=== PATIENT | male | born 1950 | race Caucasian/White ===

== ENCOUNTER → 2017-08-04 08:42 | Outpatient (POV) | payer MEDICARE, SELFPAY | PROVIDERS: PCP Family Medicine; Visit Provider Specialist | DX: R20.2 Paresthesia of skin (principal) | CPT/HCPCS: 95886; 95909 ==

== ENCOUNTER → 2017-08-28 09:12 | Outpatient (CLI) | payer MEDICARE, SELFPAY ==
--- NOTE | 2017-08-28 09:36 | XR_ITS ---
XR chest 2V HISTORY: Hypertension ITS.REASON: HTN, Preop testing ORDERING PHYSICIAN: Anuel Perez MD PATIENT AGE: 67 years COMPARISON: FINDINGS: The cardiomediastinal silhouette and pulmonary vascularity are within normal limits. The lungs are clear without infiltrates, suspicious nodules, or pleural effusions. No acute bony abnormalities. IMPRESSION: Negative chest, no acute finding
[2017-08-28 10:38] LABS: Basophils % 0.7 % (0.1-2.0); Eosinophils # 0.1 K/mm3 (0.0-0.4); Eosinophils % 1.9 % (0.1-12.0); Lymphocytes # 1.5 K/mm3 (0.7-4.5); Lymphocytes % 26.7 K/mm3 (10-50); Mean Corpuscular HGB Conc 34.8 g/dL (31.8-35.4); Mean Corpuscular Volume 94.7 fl (80-94); Mean Platelet Volume 7.5 fl (7.4-10.4); Monocytes # 0.6 K/mm3 (0.1-1.0); Monocytes % 10.1 % (1.7-9.3); Neutrophils # 3.5 K/mm3 (1.8-7.8); Neutrophils % 60.7 % (37.0-80.0); Platelet Count 264 K/mm3 (142-424); Red Blood Count 4.85 M/mm3 (4.60-6.20); Red Cell Distribution Width 12.2 % (11.5-17.5); White Blood Count 5.8 K/mm3 (4.8-10.8)
[2017-08-28 12:17] LABS: Anion Gap 12.9 mEq/L (5-15); Blood Urea Nitrogen 17 mg/dL (7-18); Carbon Dioxide 28 mmol/L (21.0-32.0); Chloride 104 mmol/L (98-107); Creatinine,Serum 1.14 mg/dL (0.70-1.30); Estimated Glomerular Filt Rate 64 ml/min (>60); GFR (African American) 78 ML/MIN (>60); Glucose 113 mg/dL (74-106); Potassium 3.9 mmoL/L (3.5-5.1); Sodium 141 mmol/L (136-145)
== END ==
PROVIDERS: Visit Provider Orthopaedic Surgery
DX: Z01.818 Encounter for other preprocedural examination (principal)
CPT/HCPCS: 36415; 71046; 80048; 85025; 93005

== ENCOUNTER → 2018-11-12 07:50 | Outpatient (CLI) | payer MEDICARE, SELFPAY | PROVIDERS: PCP Family Medicine; Visit Provider Family Medicine | DX: G47.33 Obstructive sleep apnea (adult) (pediatric) (principal); R06.83 Snoring; G47.00 Insomnia, unspecified; I10 Essential (primary) hypertension | CPT/HCPCS: G0399 ==

== ENCOUNTER → 2020-11-16 09:04 | Outpatient (POV) | payer MEDICARE, SELFPAY | PROVIDERS: Visit Provider Audiologist | DX: Z00.00 Encounter for general adult medical examination without abnormal findings (principal) ==

== ENCOUNTER 2021-01-30 09:00 | Outpatient (RCR) | payer MEDICARE, SELFPAY ==
--- NOTE | 2021-01-15 09:59 | HMH.PTOPEV ---
PT Outpatient Evaluation Rehab PT Outpatient Evaluation Start: 01/15/21 09:05 Freq: Status: Active Protocol: Document 01/15/21 09:05 MIKAILA (Rec: 01/15/21 09:59 DOMINIK [id number]) Electronically Signed By Alonzo Ramesh PT 01/15/21 09:05 Outpatient Therapy Subjective History Subjective History This is the initial Physical Therapy evaluation for Alonzo León. Pt is a 70 y/o male referred to PT for c/o R foot and calf paresthesia. Pt reports ~ 3-4 weeks ago he woke up and had pain in his R hip. Pt reports several weeks of care clinician caused pain to move into calf w/ paresthesia. Pt now reports to PT for c/o paresthesia and antalgic gait Chief Complaint Paresthesia Symptom Type Ache Symptoms Relieved By Rest/Positioning Symptoms Aggravated By Physical Activity,Lifting Prior Functional Limitations None Current Functional Limitations Lifting,Recreation Activity, Walking,Bending/Stooping Symptom Description Constant but Variable Level of pain today (0-10) 0 Pain scale - at its best (0-10) 0 Pain scale - at its worst (0-10) 6 Lumbopelvic Eval Posture Lumbar Spine Posture Standing Position Flattened Assistive device Assistive Devices None / NA Palapation tenderness right lumbar spinal tenderness Yes paraspinal tenderness Yes Lumbar/Sacral Palpation Findings Tenderness Accessory Movement L5 right S1 right Range of Motion Lumbar Spine ROM Reason Not Measured Within Functional Limits Special Tests Lumbar Spine Screen Positive Forward Bending Test- Sitting Positive Right Sciatic Nerve Tension Test Positive Right Unilateral Straight Leg Raise (Lasegue) Positive Right Test Outpatient Therapy Assessment Impairments Problems/Impairmments Impaired Gait Pattern,Impaired Walking,Impaired Sitting, Impaired Lifting,Impaired Bending,Impaired Recreational Activities,Subjective C/O Pain ,Impaired Self Care/Self Management Prognosis Rehab Potential Fair Clinical Impression Consistent with Diagnosis Yes Consistent with lumbar radiculopathy Short Term Goals Number of Weeks
== END 2021-01-30 09:05 | disposition home or self-care (01) ==
LOC: PT 09:00
PROVIDERS: PCP Family Medicine; Visit Provider Family Medicine
DX: R20.0 Anesthesia of skin (principal)
CPT/HCPCS: 97110; 97163

== ENCOUNTER → 2021-07-23 10:36 | Outpatient (CLI) | payer MEDICARE, SELFPAY | PROVIDERS: Visit Provider Internal Medicine | DX: Z01.812 Encounter for preprocedural laboratory examination (principal); Z11.52 Encounter for screening for COVID-19; Z12.11 Encounter for screening for malignant neoplasm of colon | CPT/HCPCS: C9803; U0003; U0005 ==

== ENCOUNTER 2021-07-25 08:54 | Day surgery (SDC) | payer MEDICARE, SELFPAY ==
[2021-07-20 13:32] VITALS: BMI 31.1
[2021-07-25] VITALS (7 sets, daily range): BP systolic 119–147; BP diastolic 70–81; PULSE 61–83; RESP 16–18; TEMP 36.1–36.5; O2SAT 93–99
--- NOTE | 2021-07-25 09:29 | HMH.ANESCL ---
[facility] Anesthesia Checklist - Patient Identification Patient Identification: Arm Band, Verbal (Name & ) - Structural Data Admitted From: Home Planned Operative Procedure/s: Colonoscopy Consent for Planned Operative Procedure(s) Verified: Yes Verified Documents: Surgical Consent - Additional verifications Anesthesia Reactions: No Hx Blood Transfusions: No Blood Transfusion Reaction: No - Airway Assessment C-Spine Mobility Assessed: Yes TMJ Mobility Assessed: Yes Dentition: Good Dentition - Anesthesia Plan Anesthesia Risk discussed: Yes ASA Class: II Anesthesia Type: MAC [facility] History I have reviewed the patient's past medical history: Yes Medical History: Reports:: Hyperlipidemia, Hypertension Denies:: Cancer, Diabetes Mellitus Type 1, Diabetes Mellitus Type 2, Internal Pacemaker, MRSA, Seizures *Have you ever received a pneumonia vaccine?: Yes *Have you received a flu vaccine this season?: Yes Other Medical History: Reports: Other. Denies: Blood Transfusion Reaction Anesthesia experience/problems:: no issues Other Surgeries: Yes: Cardiac Catheterization, Colonoscopy, Hernia Repair. No: Pacemaker Amputation: No Fractures: No - *Social History Last grade of school completed: High school graduate Smoking Status: Light tobacco smoker Tobacco Type: cigars Alcohol Intake: never Substance Use Type: denies use *Occupational Status:: employed Housing: house Household Members: spouse *Travel in the last 8 weeks: None Family Hx:: Stroke
--- NOTE | 2021-07-25 10:32 | HMH.SCOPE ---
- Procedure: Date: 07/25/21 Patient Date of :: 1950 Procedure Performed:: Colonoscopy Indications:: The patient is a 71 year old who presents for colonoscopy for a positive cologuard test Performing Provider:: Que Snider MD Referring Provider:: Roni Redd MD Sedation:: See RN notes Procedure:: After placing the patient in the left lateral decubitus position, the colonoscopy was gently inserted into the rectum and under direct visualization advanced to the cecum which was identified by transillumination in the right lower quadrant, identification of the ileocecal valve, appendiceal orifice, and cecal strap. Color, texture, mucosa, and anatomy of the colon were carefully examined with the scope. Findings:: Anal canal: normal Rectum: Sessile polyp less than 5 mm in size. Removed with cold snare polypectomy. Pedunculated polyp 11-12 mm in size at rectosigmoid colon. Removed with snare cautery polypectomy. Sigmoid colon: normal without polyps or inflammatory changes Descending colon: normal without polyps or inflammatory changes Splenic flexure: normal Transverse colon: normal without polyps or inflammatory changes Hepatic flexure: normal Ascending colon: normal without polyps or inflammatory changes Cecum: normal Terminal ileum: not visualized Recommendations:: Await pathology results Complications:: none Estimated blood obtained (mL): 0
== END 2021-07-25 11:25 | disposition home or self-care (01) ==
LOC: OUTP 08:55
PROVIDERS: PCP Family Medicine; Visit Provider Internal Medicine
PROC: 0DJD8ZZ Inspection of Lower Intestinal Tract, Via Natural or Artificial Opening Endoscopic (ICD-10-PCS; CPT 45378; principal; 2021-07-25 10:00)
DX: R19.5 Other fecal abnormalities (principal); D12.7 Benign neoplasm of rectosigmoid junction; D12.8 Benign neoplasm of rectum
CPT/HCPCS: 45385; 88305

== ENCOUNTER 2021-10-05 00:36 | Emergency (ER) | payer MEDICARE, SELFPAY ==
[2021-10-05] VITALS (9 sets, daily range): BP systolic 130–168; BP diastolic 85–96; PULSE 65–84; RESP 17; TEMP 36.7–36.8; O2SAT 96–99; BMI 31.1
[2021-10-05 00:51] LABS: Microscopic, Urine URINE MICROSCOPIC (MICROSCOPIC)
[2021-10-05 00:53] LABS: Appearance,Urine CLOUDY (Clear); Blood, Urine 3+ (Negative); Color,Urine DK YELLOW (Yellow); Glucose,Urine (UA) Negative (Negative); Ketones,Urine Negative (Negative); Leukocyte Esterase,Urine Negative (Negative); Nitrate,Urine Negative (Negative); Protein,Urine 1+ (Negative); Specific Gravity, Urine >= 1.030 (1.005-1.030); Urobilinogen,Urine 0.2 EU/dl (0.2)
[2021-10-05 00:59] LABS: Bilirubin,Urine Negative (Negative)
[2021-10-05 01:05] LABS: WBC,Urine Occasional #/hpf (0-3)
[2021-10-05 01:06] LABS: Bacteria,Urine 1+ /lpf
--- NOTE | 2021-10-05 01:09 | CT_ITS ---
PROCEDURE INFORMATION: Exam: CT Abdomen And Pelvis Without Contrast Exam date and time: 10/05/2021 1:19 AM Age: 71 years old Clinical indication: Abdominal pain; Flank; Right lower quadrant (rlq); Additional info: R flank pain radiates to R testicle TECHNIQUE: Imaging protocol: Computed tomography of the abdomen and pelvis without contrast. Radiation optimization: All CT scans at this facility use at least one of these dose optimization techniques: automated exposure control; mA and/or kV adjustment per patient size (includes targeted exams where dose is matched to clinical indication); or iterative reconstruction. COMPARISON: No relevant prior studies available. FINDINGS: Heart: Coronary atherosclerosis is present. Liver: Normal. No mass. Gallbladder and bile ducts: The patient is status post cholecystectomy. Pancreas: Normal. No ductal dilation. Spleen: Normal. No splenomegaly. Adrenal glands: Normal. No mass. Kidneys and ureters: There is a 9 mm stone at the right UPJ with moderate right-sided hydronephrosis and perinephric edema. No evidence of urolithiasis is noted. No left-sided stones are present. Stomach and bowel: Unremarkable. No obstruction. No mucosal thickening. Appendix: No evidence of appendicitis. Intraperitoneal space: Unremarkable. No free air. No significant fluid collection. Vasculature: Unremarkable. No abdominal aortic aneurysm. Lymph nodes: Unremarkable. No enlarged lymph nodes. Urinary bladder: Unremarkable as visualized. Reproductive: The prostate is diffusely enlarged. Bones/joints: Unremarkable. No acute fracture. Soft tissues: Unremarkable. IMPRESSION: 1. 9 mm right UPJ stone with moderate right-sided hydronephrosis. 2. Status post cholecystectomy. 3. Coronary atherosclerosis. 4. Prostatomegaly
--- NOTE | 2021-10-05 01:24 | PC.NURSE ---
Pt gone to RAD
--- NOTE | 2021-10-05 01:27 | PC.NURSE ---
Pt back from RAD and given warm blanket
[2021-10-05 01:28] LABS: Basophils # 0.2 K/mm3 (0-0.2); Basophils % 1.4 % (0.1-2.0); Eosinophils # 0.2 K/mm3 (0.0-0.4); Eosinophils % 1.4 % (0.1-12.0); Hematocrit 48.2 % (42.0-52.0); Hemoglobin 16.5 g/dL (14.1-18.0); Lymphocytes # 1.2 K/mm3 (0.7-4.5); Lymphocytes % 9.8 % (10-50); Mean Corpuscular HGB Conc 34.3 g/dL (31.8-35.4); Mean Corpuscular Hemoglobin 33.4 pg (27.0-31.2); Mean Corpuscular Volume 97.4 fl (80-94); Monocytes # 0.7 K/mm3 (0.1-1.0); Monocytes % 5.7 % (1.7-9.3); Neutrophils # 10.2 K/mm3 (1.8-7.8); Neutrophils % 81.6 % (37.0-80.0); Platelet Count 288 K/mm3 (142-424); Red Blood Count 4.95 M/mm3 (4.60-6.20); Red Cell Distribution Width 13.1 % (11.5-17.5); White Blood Count 12.5 K/mm3 (4.8-10.8)
[2021-10-05 01:33] LABS: Amylase 104 U/L (30-110)
[2021-10-05 01:35] LABS: Alanine Aminotransferase 34 U/L (12-78); Albumin Level 4.4 g/dl (3.5-5.0); Albumin/Globulin Ratio 1.4 (1.1-1.8); Alkaline Phosphatase 60 U/L (38-126); Anion Gap 13.7 mEq/L (5-15); Aspartate Amino Transferase 29 U/L (17-59); Bilirubin,Total 0.3 mg/dl (0.2-1.3); Blood Urea Nitrogen 24 mg/dl (9-20); Calcium 9.5 mg/dl (8.4-10.2); Carbon Dioxide 31 mmol/L (22.0-30.0); Chloride 98 mmol/L (98-107); Creatinine Clearance Estimated 73 mL/min (50-200); Estimated Glomerular Filt Rate 50 ml/min (>60); GFR (African American) 61 ML/MIN (>60); Globulin 3.1 g/dL (1.3-3.2); Glucose 160 mg/dl (74-100); Lipase 103 U/L (23-300); Potassium 3.7 mmoL/L (3.5-5.1); Sodium 139 mmol/L (136-145); Total Protein,Serum 7.5 g/dl (6.3-8.2)
[2021-10-05 01:39] LABS: C-Reactive Protein 0.8 mg/L (0-4)
--- NOTE | 2021-10-05 01:39 | HMH.EDUROGM ---
ED Disposition Clinical Impression: Renal colic on right side Disposition: Home, Self-Care Condition on Discharge: Good Instructions: DI for Kidney Stones Additional Instructions: use meds and see pcp for follow up Prescriptions: Tamsulosin HCl [Flomax 0.4mg capsule] 0.4 mg PO HS 14 Days #30 cap Transmission Status: Pending to [facility] Referrals: Monica Salinas MD [Primary Care Provider] - Asher Miguel MD [Staff Physician] - - Critical Care Critical Care Time: No Attestation: On 10/05/21, the high probability of a clinically significant, sudden or life threatening deterioration of the following system(s) required my full and direct attention, intervention and personal management. The time I documented below is in addition to time spent performing reported procedures but includes the following listed in this critical care notation. Medical Decision Making - Medical Records Medical records reviewed: Yes: I reviewed the patient's medical records. - Omari Inquiry Pt receiving controlled substance: No Vital Signs: 10/05/21 00:38 10/05/21 00:56 10/05/21 01:16 Temperature 98.1 F Temperature Source Oral Pulse Rate 65 72 Pulse Rate [Right] 68 Respiratory Rate 17 Blood Pressure 161/94 H 151/92 H Blood Pressure [Right Arm] 161/94 H Blood Pressure Mean Blood Pressure Mean [Right Arm] 116 Blood Pressure Source [Right Arm] Automatic Cuff 02 Sat by Pulse Oximetry 98 98 99 Oxygen Delivery Method Room Air Room Air Room Air 10/05/21 01:36 10/05/21 01:57 10/05/21 02:36 Temperature Temperature Source Pulse Rate 73 84 Pulse Rate [Right] Respiratory Rate Blood Pressure 130/85 156/90 H 168/92 H Blood Pressure [Right Arm] Blood Pressure Mean 102 102 107 Blood Pressure Mean [Right Arm] Blood Pressure Source [Right Arm] 02 Sat by Pulse Oximetry 97 96 Oxygen Delivery Method Room Air Room Air 10/05/21 02:56 10/05/21 03:35 Temperature Temperature Source Pulse Rate 74 Pulse Rate [Right] Respiratory Rate Blood Pressure 159/93 H 166/91 H Blood Pressure [Right Arm] Blood Pressure Mean 105 103 Blood Pressure Mean [Right Arm] Blood Pressure Source [Right Arm] 02 Sat by Pulse Oximetry 97 97 Oxygen Delivery Method Room Air Room Air - Lab Data Lab results reviewed: Yes: I reviewed the patient's lab results. Lab Results 10/05/21 00:46: Urine Color Dk yellow, Urine Appearance Cloudy, Urine pH 6.0, Ur Specific [place] >= 1.030, Urine Protein 1+, Urine Glucose (UA) Negative, Urine Ketones Negative, Urine Blood 3+, Urine Nitrate Negative, Urine Bilirubin Negative, Urine Urobilinogen 0.2, Ur Leukocyte Esterase Negative, Urine RBC 10-20, Urine WBC Occasional, Urine Bacteria 1+ 10/05/21 01:18: ESR 15 10/05/21 01:18: C-Reactive Protein 0.8, Amylase 104, Procalcitonin 0.061 10/05/21 01:18: WBC 12.5 H, RBC 4.95, Hgb 16.5, Hct 48.2, MCV 97.4 H, MCH 33.4 H, MCHC 34.3, RDW 13.1, Plt Count 288, MPV 8.0, Neut % (Auto) 81.6 H, Lymph % (Auto) 9.8 L, Branch % (Auto) 5.7, Eos % (Auto) 1.4, Baso % (Auto) 1.4, Neut # (Auto) 10.2 H, Lymph # (Auto) 1.2, Branch # (Auto) 0.7, Eos # (Auto) 0.2, Baso # (Auto) 0.2 10/05/21 01:18: Sodium 139, Potassium 3.7, Chloride 98, Carbon Dioxide 31 H, Anion Gap 13.7, BUN 24 H, Creatinine 1.40 H, Estimated Creat Clear 73, Estimated GFR 50 L, Est GFR ( Amer) 61, Glucose 160 H, Calcium 9.5, Total Bilirubin 0.3, AST 29, ALT 34, Alkaline Phosphatase 60, Total Protein 7.5, Albumin 4.4, Globulin 3.1, Albumin/Globulin Ratio 1.4, Lipase 103 Result diagrams: 10/05/21 01:18 10/05/21 01:18 Orders (Tests/Meds): ED MEDICATIONS Generic Name Dose Route Start Last Admin Trade Name Freq PRN Reason Stop Dose Admin Sodium Chloride 1,000 mls @ 999 mls/hr 10/05/21 01:15 10/05/21 01:40 Sod Chlor 0.9% 1000ml Bag IV 10/05/21 02:15 999 mls/hr .[id number] MANOJ Administration Sodium Chloride 1,000 mls @ 999 mls/hr 10/05/21 04:00 0
[2021-10-05 01:53] LABS: Procalcitonin 0.061 ng/mL (0.0-2.0)
[2021-10-05 01:55] LABS: Erythrocyte Sedimentation Rate 15 mm/hr (0-20)
--- NOTE | 2021-10-05 02:54 | PC.NURSE ---
Spoke with Trinity from Radiology, she advised that she had spoke to [facility] and they had not yet begun to read scans because they were trying to streamline more critical cases.
--- NOTE | 2021-10-05 03:00 | PC.NURSE ---
Spoke with pt about expected wait times. Pt was very agreeable. No new needs at this time.
--- NOTE | 2021-10-05 03:07 | PC.NURSE ---
Pt & her spouse updated on expected wait time for ct scan, results. States their understanding. Given warm blankets. Fluids infusing, and pain medication.
--- NOTE | 2021-10-05 03:46 | PC.NURSE ---
Called Radiology to check status of [facility], still only assigned . She is chatting [facility] again.
== END 2021-10-05 05:09 | disposition home or self-care (01) ==
PROVIDERS: Emergency Provider Emergency Medicine; PCP Family Medicine
DX: N20.0 Calculus of kidney (principal); N50.811 Right testicular pain; M54.9 Dorsalgia, unspecified; I10 Essential (primary) hypertension; E78.5 Hyperlipidemia, unspecified; F17.290 Nicotine dependence, other tobacco product, uncomplicated; Z79.82 Long term (current) use of aspirin
CPT/HCPCS: 74176; 80053; 81001; 82150; 83690; 84145; 85025; 85651; 86140; 96361; 96374; 96375; 99285; J2405

== ENCOUNTER → 2021-10-11 10:11 | Outpatient (CLI) | payer MEDICARE, SELFPAY ==
--- NOTE | 2021-10-11 10:26 | XR_ITS ---
FINAL REPORT CLINICAL HISTORY: kidney stone COMPARISON: CT dated October 05, 2021 FINDINGS: SINGLE VIEW ABDOMEN A single view of the abdomen was obtained. There is a nonobstructive bowel gas pattern. There are no abnormally dilated loops of small bowel. There is a moderate to large amount of retained stool. There is a calcification of the medial right abdomen measuring 6 mm consistent with proximal right ureteral stone as seen on the prior CT. There are postoperative changes of the right abdomen. IMPRESSION: Nonobstructive bowel gas pattern. Right ureteral stone. Moderate to large amount of retained stool. Reviewed, Interpreted and Dictated by Jermaine Muhammad III, MD Transcribed by Sarai Sweet Authenticated and [facility]
== END ==
PROVIDERS: PCP Family Medicine; Visit Provider Urology
DX: N20.0 Calculus of kidney (principal)
CPT/HCPCS: 74018

== ENCOUNTER → 2021-10-24 08:52 | Outpatient (CLI) | payer MEDICARE, SELFPAY | PROVIDERS: PCP Family Medicine; Visit Provider Urology | DX: N20.1 Calculus of ureter (principal); Z01.812 Encounter for preprocedural laboratory examination; Z20.822 Contact with and (suspected) exposure to COVID-19 | CPT/HCPCS: C9803; U0003; U0005 ==

== ENCOUNTER 2021-10-26 08:08 | Day surgery (SDC) | payer MEDICARE, SELFPAY ==
[2021-10-24 10:39] VITALS: BMI 31.1
[2021-10-26] VITALS (9 sets, daily range): BP systolic 123–147; BP diastolic 81–100; PULSE 70–79; RESP 15–19; TEMP 36.2–36.5; O2SAT 91–97
--- NOTE | 2021-10-26 08:14 | XR_ITS ---
FINAL REPORT CLINICAL HISTORY: URETERAL STONE COMPARISON: 10/11/2021 FINDINGS: ABDOMEN SINGLE VIEW There is a nonspecific, nonobstructive bowel gas pattern. No bowel dilation is identified. There is a 6 mm calcification in the medial right abdomen adjacent to the right L3 transverse process consistent with a proximal ureteral stone. There has been no significant change since previous. There is postoperative change in the right upper quadrant. Pelvic calcifications are seen, may represent prostate calcifications. IMPRESSION: Proximal ureteral stone, not significantly changed. Reviewed, Interpreted and Dictated by Jermaine Muhammad III, MD Transcribed by Amanda Stroud Authenticated and [facility] [place] [place]
--- NOTE | 2021-10-26 09:20 | P.PN_ITS ---
[facility] Anesthesia Checklist - Patient Identification Patient Identification: Arm Band - Structural Data Admitted From: Home Planned Operative Procedure/s: ESWL Consent for Planned Operative Procedure(s) Verified: Yes - NPO Status Verified Time NPO: 00:00 - Additional verifications Anesthesia Reactions: No Hx Blood Transfusions: No Blood Transfusion Reaction: No - Airway Assessment C-Spine Mobility Assessed: Yes TMJ Mobility Assessed: Yes Dentition: Poor Dentition - Neurological Assessment Level of Consciousness: Awake Hx Seizures: No Numbness or tingling in extremities: No - Anesthesia Plan Anesthesia Risk discussed: Yes Anesthesia Plan: Verified ASA Class: III Anesthesia Type: General [facility] History I have reviewed the patient's past medical history: Yes Medical History: Reports:: Hyperlipidemia, Hypertension, Kidney Stones Denies:: Cancer, Diabetes Mellitus Type 1, Diabetes Mellitus Type 2, Internal Pacemaker, MRSA, Seizures *Have you ever received a pneumonia vaccine?: Yes *Have you received a flu vaccine this season?: Yes Other Medical History: Reports: Other. Denies: Blood Transfusion Reaction Anesthesia experience/problems:: None Other Surgeries: Yes: No Previous Surgery, Cardiac Catheterization, Colonoscopy, Hernia Repair. No: Pacemaker Amputation: No Fractures: No - *Social History Smoking Status: Former smoker Tobacco Type: cigars Alcohol Intake: current Alcohol Intake Frequency:: a few times a month Substance Use Type: denies use *Occupational Status:: employed Housing: house Household Members: spouse *Travel in the last 8 weeks: None Family Hx:: Stroke
--- NOTE | 2021-10-26 11:41 | P.PN_ITS ---
[facility] Anesthesia Record Part I Intake, IV Amount: 700 Estimated blood loss (mL): 0 Urine output (mL): 0 Blood Pressure: 147/87 SaO2: 94 Pulse Rate: 75 Respiratory Rate: 15 Temperature: 97.2 F Patient is:: Drowsy, Oral/Nasal airway Stable to PACU at:: 11:39
--- NOTE | 2021-10-26 14:01 | HMH.OPNOTE ---
Date of procedure: 10/26/21 Pre-op Diagnosis:: 7 mm right proximal ureteral stone Post-op Diagnosis:: Same Procedure performed:: Cystoscopy with stone manipulation and right ESWL Surgeon:: Asher Miguel MD [employer] INSTALLER:: Wesley Munoz Anesthesia: LMA Estimated blood loss (mL): 0 Clinical Note:: 71-year-old white male with history of nephrolithiasis now with a 7 mm right proximal ureteral stone. He continues to have some Intermittent right flank pain and presents for urologic management. Operative findings:: Preoperative KUB revealed a 7 mm stone still in the proximal right ureter. Stone was manipulated easily back into the kidney and ESWL was performed with good fragmentation. Operative note:: Patient taken to the operating room after informed consent was obtained. He was placed on the operating table in the supine position and general anesthesia administered. Preoperative antibiotics and sequential compression devices placed. He was then placed into the dorsal lithotomy position and prepped draped in the standard surgical fashion. 22 Federico passed into the urethra and into the bladder without difficulty. The bladder was examined in a systematic fashion and a small calcification was noted in the bladder. No mucosal abnormalities or diverticula were noted. A 5 [place] ureteral catheter passed into the right ureteral orifice and under fluoroscopy passed up to the proximal right ureteral stone. The stone was easily manipulated back into the right kidney and ureteral catheter left indwelling for the ESWL portion of the procedure. The bladder drained and the cystoscope removed. Patient then placed into the supine position and positioned so that the stone was at the F2 of the lithotripter. 1000 shockwaves delivered to the stone and the stone had fragmented very nicely. There is still residual stone fragments remaining and another 2000 shockwaves delivered to the stone with very good fragmentation. Patient tolerated procedure well. The ureteral catheter was removed at the end of the case. Transferred to the recovery in stable condition. Condition: stable Disposition: PACU Specimens:: None Complications:: None
[2021-10-29 07:12] VITALS: BP 128/84; PULSE 70; TEMP 36.4
--- NOTE | 2021-10-29 07:12 | P.PN_ITS ---
[facility] Anesthesia Record Part II Discharge Time: 12:09 Destination: Surgical Day Care (OP Surgery) PACU nurse assessment reviewed?: Yes Patient Condition:: Good Anesthesia Complications:: None Swallowing reflex intact?: Yes Cyanosis?: No Blood Pressure: 128/84 Pulse Rate: 70 Temperature: 97.5 F Mental Status: Alert & Oriented Pain level:: 0 Nausea and/or vomitting:: None Intake, IV Amount: 0
== END 2021-10-26 12:40 | disposition home or self-care (01) ==
LOC: OR 08:09
PROVIDERS: PCP Family Medicine; Visit Provider Urology
DX: N20.2 Calculus of kidney with calculus of ureter (principal); N23 Unspecified renal colic; I10 Essential (primary) hypertension; E78.5 Hyperlipidemia, unspecified
CPT/HCPCS: 50590; 74018; 96374

== ENCOUNTER → 2021-11-09 13:13 | Outpatient (CLI) | payer MEDICARE, SELFPAY ==
--- NOTE | 2021-11-09 13:31 | XR_ITS ---
FINAL REPORT CLINICAL HISTORY: kidney stone COMPARISON: 10/26/2021 FINDINGS: A single view of the abdomen was obtained. There is a nonobstructive bowel gas pattern. There are no abnormally dilated loops of small bowel. There is a moderate-large amount of retained stool. There are postoperative changes in the right upper quadrant. There is no definite renal or ureteral stone. There is questionable prostate calcification which is stable. IMPRESSION: No definite renal or ureteral stone. Moderate-large amount of retained stool. Reviewed, Interpreted and Dictated by Jermaine Muhammad III, MD Transcribed by Sandy Dickens Authenticated and [facility]
[2021-11-23 23:09] LABS: Ca oxalate dihydrate 30%; Specimen Type Not Provided
== END ==
PROVIDERS: PCP Family Medicine; Visit Provider Urology
DX: N20.0 Calculus of kidney (principal)
CPT/HCPCS: 74018; 82370

== ENCOUNTER → 2021-11-10 12:12 | Outpatient (CLI) | payer MEDICARE, SELFPAY | PROVIDERS: Visit Provider Urology | DX: N20.0 Calculus of kidney (principal) ==